=== PATIENT | male | born 1975 | race Two or more races ===

== ENCOUNTER 2016-12-18 22:14 | Emergency (ER) | payer OTHER, BC ==
[~2016-12-18 22:14] MED LIST: NABUMETONE500 M1 PO; NORCO 5-325 TA1 EACH PO
[2016-12-19] MEDS ORDERED: TRAMADOL HCL50 M2 PO (12:05)
== END 2016-12-18 22:51 ==
LOC: EDMED 22:14
DX: S43.031A Inferior subluxation of right humerus, initial encounter (principal); X58.XXXA Exposure to other specified factors, initial encounter

== ENCOUNTER 2016-12-19 12:18 | Emergency (ER) | payer OTHER, BC ==
[~2016-12-19 12:18] MED LIST changes: +TRAMADOL HCL50 M2 PO
== END 2016-12-19 12:20 ==
LOC: EDMED 12:18
DX: S43.001A Unspecified subluxation of right shoulder joint, initial encounter (principal); X58.XXXA Exposure to other specified factors, initial encounter